=== PATIENT | male | born 1950 | race Caucasian/White ===

== ENCOUNTER 2017-09-20 12:51 | Emergency (ER) | payer MEDICARE, BC ==
[~2017-09-20] VITALS: Ht 180.3 cm; Wt 86.0 kg
[2017-09-20 12:53] VITALS: BP 121/76; PULSE 59; RESP 14; TEMP 97.5; O2SAT 100
[2017-09-20] MEDS ORDERED: SODIUM CHLORIDE 0.9% FLUSH 10 ML FLUSH IVF PRN (13:15)
[2017-09-20 13:18] VITALS: O2SAT 97
[2017-09-20] MEDS ORDERED: ATOR40TA16 PO (13:21)
[2017-09-20] MEDS ORDERED: PIRO20CA PO (13:21)
[2017-09-20] MEDS ORDERED: [UNRECOGNIZED DRUG - OTHER] (13:21)
[2017-09-20] MEDS ORDERED: antifungal (13:21)
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
--- NOTE | 2017-09-20 13:42 | RADRPT ---
EXAM DATE/TIME: 09/20/2017 13:18 [facility] COMPARISON: No previous studies available for comparison. INDICATIONS : Possible seizure today. RADIATION DOSE: 56.35 CTDIvol (mGy) MEDICAL HISTORY : None SURGICAL HISTORY : None. ENCOUNTER: Initial ACUITY: 1 day PAIN SCALE: 0/10 LOCATION: Bilateral head TECHNIQUE: Multiple contiguous axial images were obtained of the head. Using automated exposure control and adj ustment of the mA and/or kV according to patient size, radiation dose was kept as low as reasonably a chievable to obtain optimal diagnostic quality images. DICOM format image data is available electro nically for review and comparison. FINDINGS: CEREBRUM: The ventricles are normal for age. No evidence of midline shift, mass lesion, hemorrhage or acute in farction. Old ischemic changes left temporal region No extra-axial fluid collections are seen. POSTERIOR FOSSA: The cerebellum and brainstem are intact. The 4th ventricle is midline. The cerebellopontine angle i s unremarkable. EXTRACRANIAL: The visualized portion of the orbits is intact. Maxillary sinus disease is evident worse on the righ t SKULL: The calvaria is intact. No evidence of skull fracture. CONCLUSION: Maxillary sinus disease worse on the right. Old ischemic changes left sylvian region. Negative for acute process. Adriel Guzmán MD FACR on September 20, 2017 at 13:39 Board Certified Radiologist. This report was verified electronically.
[2017-09-20 13:43] LABS: AUTOMATED NEUTROPHIL # 2.9 TH/MM3 (1.8-7.7); BASOPHIL % 0.8 % (0.0-2.0); EOSINOPHIL # 0.2 TH/MM3 (0-0.4); EOSINOPHIL % 3.6 % (0.0-4.0); HEMATOCRIT 42.1 % (39.0-51.0); HEMOGLOBIN 14.3 GM/DL (13.0-17.0); LYMPH % 25.9 % (9.0-44.0); LYMPHOCYTE # 1.3 TH/MM3 (1.0-4.8); MEAN CELL VOLUME 89.1 FL (80.0-100.0); MEAN CORPUSCULAR HEMOGLOBIN 30.2 PG (27.0-34.0); MEAN CORPUSCULAR HGB CONC 33.9 % (32.0-36.0); MEAN PLATELET VOLUME 9.1 FL (7.0-11.0); MONO % 9.1 % (0.0-8.0); MONOCYTE # 0.4 TH/MM3 (0-0.9); NEUT % 60.6 % (16.0-70.0); PLATELET COUNT 201 TH/MM3 (150-450); RED BLOOD COUNT 4.72 MIL/MM3 (4.50-5.90); RED CELL DISTRIBUTION WIDTH 13.5 % (11.6-17.2); WHITE BLOOD COUNT 4.8 TH/MM3 (4.0-11.0)
[2017-09-20 13:50] LABS: BICARBONATE 28.1 MEQ/L (21.0-32.0); CALCIUM 9.2 MG/DL (8.5-10.1); CREATININE 0.98 MG/DL (0.60-1.30)
[2017-09-20 13:54] LABS: BILIRUBIN, URINE NEG (NEG); BLOOD, URINE NEG (NEG); GLUCOSE,URINE NEG (NEG); KETONE, URINE NEG (NEG); MUCUS URINE MANY /lpf (OCC); NITRITE,URINE NEG (NEG); PH, URINE 6.5 (5.0-8.5); SQUAMOUS EPITHELIAL CELL URINE <1 /hpf (0-5); URINE COLOR YELLOW (YELLW/STRAW); URINE LEUKOCYTE ESTERASE NEG (NEG)
--- NOTE | 2017-09-20 14:21 | PD ---
Data Data Last Documented VS Vital Signs Date Time Temp Pulse Resp B/P (MAP) Pulse Ox O2 Delivery O2 Flow Rate FiO2 09/20/17 14:35 09/20/17 13:18 97 Room Air 09/20/17 12:53 97.5 59 14 Orders Orders Complete Blood Count With Diff (09/20/17 13:14) Basic Metabolic Panel (Bmp) (09/20/17 13:14) Drug Screen, Random Urine (09/20/17 13:14) Electrocardiogram (09/20/17 ) Ct Brain W/O Iv Contrast(Rout) (09/20/17 ) Blood Glucose (09/20/17 13:14) Ecg Monitoring (09/20/17 13:14) Iv Access Insert/Monitor (09/20/17 13:14) Oximetry (09/20/17 13:14) Sodium Chloride 0.9% Flush (Ns Flush) (09/20/17 13:15) Urinalysis - C+S If Indicated (09/20/17 13:14) Ed Discharge Order (09/20/17 14:23) Labs Laboratory Tests Test 09/20/17 13:17 White Blood Count 4.8 TH/MM3 Red Blood Count 4.72 MIL/MM3 Hemoglobin 14.3 GM/DL Hematocrit 42.1 % Mean Corpuscular Volume 89.1 FL Mean Corpuscular Hemoglobin 30.2 PG Mean Corpuscular Hemoglobin Concent 33.9 % Red Cell Distribution Width 13.5 % Platelet Count 201 TH/MM3 Mean Platelet Volume 9.1 FL Neutrophils (%) (Auto) 60.6 % Lymphocytes (%) (Auto) 25.9 % Monocytes (%) (Auto) 9.1 % Eosinophils (%) (Auto) 3.6 % Basophils (%) (Auto) 0.8 % Neutrophils # (Auto) 2.9 TH/MM3 Lymphocytes # (Auto) 1.3 TH/MM3 Monocytes # (Auto) 0.4 TH/MM3 Eosinophils # (Auto) 0.2 TH/MM3 Basophils # (Auto) 0.0 TH/MM3 CBC Comment DIFF FINAL Differential Comment Urine Color YELLOW Urine Turbidity HAZY Urine pH 6.5 Urine Specific [place] 1.021 Urine Protein 30 mg/dL Urine Glucose (UA) NEG mg/dL Urine Ketones NEG mg/dL Urine Occult Blood NEG Urine Nitrite NEG Urine Bilirubin NEG Urine Urobilinogen LESS THAN 2.0 MG/DL Urine Leukocyte Esterase NEG Urine RBC 1 /hpf Urine WBC 1 /hpf Urine Squamous Epithelial Cells <1 /hpf Urine Mucus MANY /lpf Microscopic Urinalysis Comment CULT NOT INDICATED Blood Urea Nitrogen 15 MG/DL Creatinine 0.98 MG/DL Random Glucose 100 MG/DL Calcium Level 9.2 MG/DL Sodium Level 137 MEQ/L Potassium Level 4.4 MEQ/L Chloride Level 104 MEQ/L Carbon Dioxide Level 28.1 MEQ/L Anion Gap 5 MEQ/L Estimat Glomerular Filtration Rate 76 ML/MIN Urine Opiates Screen NEG Urine Barbiturates Screen NEG Urine Amphetamines Screen NEG Urine Benzodiazepines Screen NEG Urine Cocaine Screen NEG Urine Cannabinoids Screen NEG MDM Supervised Visit with [facility]: Yes Narrative Course I, Dr. Villaseñor, have reviewed the advance practice practitioner's documentation and am in agreement, met with the patient face to face, made the diagnosis, and the medical decision making was done by me. *My assessment and Findings: Patient seen and examined by me in addition to Tiffanie Shoemaker. 66-year-old neurologically intact male, neuro exam shows cranial nerves II through XII are grossly intact nonfocal, 5 out of 5 strength in all 4 extremities, cerebellar testing negative, no seizure activity seen in the emergency department. This patient was getting a massage today, he had 3 epileptiform like events. His states that they were getting a massage today in the mall and suddenly he sat up and had very tonic-clonic like event, after the event was over in a few seconds to a minute the patient was asked by her did he feel all right and he said yes and then immediately started having a tonic like event again. Patient states he feels fine now, does not recall the event. Apparently he had 3 events all of which she was able to talk between. He had one episode like this 6 months ago when he was having synovial fluid drawn off his foot, he went and saw a neurologist to had no advanced testing and the neurologist thought there was "nothing wrong with him". At this time his initial workup negative, I recommended to him that outpatient neurology consultation be sought. He is agreeable. He had been on antiseizure medicine in the past but does not remember what he was on. At this time there is no indication to start medication. His gas with him that any further seizure activity should prompt emergent reevaluation in our department, he was counseled on no driving until cleared by neurologist. He is stable for discharge Disposition: 01 DISCHARGE HOME Condition: Stable Manuel Villaseñor MD Sep 20, 2017 14:21
--- NOTE | 2017-09-20 16:40 | EKG ---
Date Performed: 09/20/2017 Time Performed: 13:21:11 PTAGE: 66 years EKG: SINUS BRADYCARDIA EARLY REPOLARIZATION BORDERLINE ECG NO PREVIOUS TRACING DOCTOR: Viktoria Durán Interpretating Date/Time 09/20/2017 16:39:12
== END 2017-09-20 14:45 | disposition home or self-care (01) ==
LOC: NEPC 12:51
DX: R56.9 Unspecified convulsions (principal); M19.90 Unspecified osteoarthritis, unspecified site; R00.1 Bradycardia, unspecified; Z87.820 Personal history of traumatic brain injury; Z79.899 Other long term (current) drug therapy
CPT/HCPCS: 70450; 80048; 80307; 81001; 85025; 93005; 99285